=== PATIENT | male | born 1985 | race Hispanic/Latino ===

== ENCOUNTER 2021-09-21 13:46 | Emergency (ER) | payer OTHER ==
[~2021-09-21] VITALS: Ht 177.8 cm; Wt 68.5 kg
[2021-09-21 14:23] LABS: BASOPHILS % (AUTO) 0.5 % (0.0-5.0); HEMATOCRIT 49.7 % (42-54); LYMPHOCYTES % (AUTO) 7.9 % (21.0-51.0); MEAN CORPUSCULAR HEMOGLOBIN 28.7 pg (27.0-33.0); MEAN CORPUSCULAR HGB CONC 33.6 g/dL (32.0-36.0); MEAN CORPUSCULAR VOLUME 85.5 fL (79-99); MONOCYTES % (AUTO) 10.5 % (3.0-13.0); NEUTROPHILS % (AUTO) 74.8 % (40.0-77.0); PLATELET COUNT (AUTO) 231 K/uL (130-400); RED BLOOD CELL COUNT(AUTO) 5.81 MIL/uL (4.50-6.20); RED CELL DISTRIBUTION WIDTH 12.6 % (11.0-15.5); WHITE BLOOD COUNT (AUTO) 9.2 K/uL (4.8-10.8)
[2021-09-21 14:42] LABS: APPEARANCE,URINE Clear (CLEAR); BILIRUBIN,URINE Negative (NEGATIVE); COLOR,URINE Yellow (YELLOW); GLUCOSE, URINE (UA) Negative (NEGATIVE); KETONES,URINE Negative (NEGATIVE); LEUKOCYTE ESTERASE ,URINE Negative (NEGATIVE); NITRATE,URINE Negative (NEGATIVE); OCCULT BLOOD,URINE Large (NEGATIVE); PROTEIN,URINE >=1000 mg/dL (NEGATIVE)
[2021-09-21 14:43] LABS: CREATININE 0.7 mg/dL (0.5-1.5); POTASSIUM 3.6 mmol/L (3.5-5.1)
[2021-09-21 14:47] LABS: ALBUMIN 1.4 g/dL (3.5-5.0); BILIRUBIN,TOTAL 0.2 mg/dL (0.2-1.0); CRP QUANTITATIVE 26.8 mg/L (0.00-9.0); TOTAL PROTEIN, SERUM 5.1 g/dL (6.0-8.3)
[2021-09-21] MEDS ORDERED: ACETAMINOPHEN 500 MG TABLET PO ONE (15:00)
[2021-09-21 15:08] LABS: BACTERIA,URINE Rare /HPF (None Seen); HYALINE CASTS, URINE 0-1 /LPF (0-1 /LPF); MUCUS,URINE Rare LPF (None Seen); RBC,URINE 0-1 /HPF (0-1); SQUAMOUS EPITHELIAL CELL,UR Rare /HPF (0-2)
[2021-09-21] MEDS ORDERED: 0.9%NACL 1000ML 1,000 ML IV ONE (16:30)
[2021-09-21] MEDS ORDERED: IOHEXOL-350 75 ML VIAL IV ONE (18:02)
[2021-09-21 18:23] VITALS: BP 103/64
== END 2021-09-21 19:27 | disposition home or self-care (01) ==
LOC: EDH 13:46
DX: R53.1 Weakness (principal); R05.9 Cough, unspecified; R06.02 Shortness of breath; Z20.822 Contact with and (suspected) exposure to COVID-19
CPT/HCPCS: 36415; 71046; 71270; 80053; 81001; 82550; 83605; 84145; 85025; 85378; 86140; 87040 ×2; 87635; 87804 ×2; 87880; 96360; 99285; C9803; J7030; Q9967

== ENCOUNTER 2021-12-01 15:21 | Inpatient (IN) | payer OTHER ==
[~2021-12-01] VITALS: Ht 177.8 cm; Wt 57.5 kg
[2021-12-01] MEDS ORDERED: ACETAMINOPHEN 325 MG TAB PO PRN ×2 (17:30)
[2021-12-01] MEDS: 0.9%NACL 1000ML 1,000 ML IV SCH (17:47)
[2021-12-01 20:10] VITALS: BP 105/60
[2021-12-01] MEDS ORDERED: DABI110C PO (20:21)
[2021-12-01] MEDS ORDERED: PROP10TA72 PO (20:21)
[2021-12-01] MEDS: FAMOTIDINE 20MG VIAL IV SCH (21:18)
[2021-12-02] MEDS: 0.9%NACL 1000ML 1,000 ML IV SCH ×3 (00:08→23:30)
[2021-12-02 00:18] VITALS: BP 100/60
[2021-12-02 00:55] LABS: BASOPHILS % (AUTO) 0.4 % (0.0-5.0); HEMATOCRIT 29.6 % (42-54); LYMPHOCYTES % (AUTO) 12.1 % (21.0-51.0); MEAN CORPUSCULAR HEMOGLOBIN 29.1 pg (27.0-33.0); MEAN CORPUSCULAR HGB CONC 33.8 g/dL (32.0-36.0); MONOCYTES % (AUTO) 16.2 % (3.0-13.0); NEUTROPHILS % (AUTO) 61.6 % (40.0-77.0); PLATELET COUNT (AUTO) 124 K/uL (130-400); RED BLOOD CELL COUNT(AUTO) 3.44 MIL/uL (4.50-6.20); RED CELL DISTRIBUTION WIDTH 16.3 % (11.0-15.5); WHITE BLOOD COUNT (AUTO) 4.5 K/uL (4.8-10.8)
[2021-12-02 01:10] LABS: INR 1.04 (0.85-1.15); PROTHROMBIN TIME 11.3 SEC (9.6-11.6)
[2021-12-02 01:11] LABS: PARTIAL THROMBOPLASTIN TIME 44.1 SEC (26.3-35.5)
[2021-12-02 01:13] LABS: ALBUMIN 1.4 g/dL (3.5-5.0); CREATININE 0.3 mg/dL (0.5-1.5); MAGNESIUM 1.6 mg/dL (1.80-2.40); POTASSIUM 3.4 mmol/L (3.5-5.1); TOTAL PROTEIN, SERUM 4.6 g/dL (6.0-8.3)
[2021-12-02] MEDS ORDERED: MAGNESIUM 2GM PREMIX 50ML 50 ML IV ONE (02:00)
[2021-12-02 05:40] VITALS: BP 94/56
[2021-12-02 07:30] VITALS: BP 103/65
[2021-12-02] MEDS ORDERED: LIDOCAINE HCL-MPF 1% 2ML VIAL IV PRN (08:00)
[2021-12-02] MEDS ORDERED: POTASSIUM CHLORIDE 10MEQ/100ML 100 ML IV PRN (08:00)
[2021-12-02] MEDS ORDERED: KCL 20 MEQ ERTAB PO PRN (08:00)
[2021-12-02] MEDS: FAMOTIDINE 20MG VIAL IV SCH ×2 (08:53→22:52)
[2021-12-02] MEDS: POTASSIUM CHLORIDE 10% ELIXIR 20 MEQ/15 ML UDCUP PO PRN (08:53)
[2021-12-02 09:42] LABS: BASOPHILS % (AUTO) 0.5 % (0.0-5.0); HEMATOCRIT 32.2 % (42-54); LYMPHOCYTES % (AUTO) 10.8 % (21.0-51.0); MEAN CORPUSCULAR HEMOGLOBIN 28.8 pg (27.0-33.0); MEAN CORPUSCULAR HGB CONC 33.5 g/dL (32.0-36.0); MEAN CORPUSCULAR VOLUME 85.9 fL (79-99); MONOCYTES % (AUTO) 11.7 % (3.0-13.0); NEUTROPHILS % (AUTO) 67.7 % (40.0-77.0); PLATELET COUNT (AUTO) 132 K/uL (130-400); RED BLOOD CELL COUNT(AUTO) 3.75 MIL/uL (4.50-6.20); RED CELL DISTRIBUTION WIDTH 16.4 % (11.0-15.5); WHITE BLOOD COUNT (AUTO) 4.4 K/uL (4.8-10.8)
[2021-12-02 09:56] LABS: ALBUMIN 1.5 g/dL (3.5-5.0); CREATININE 0.4 mg/dL (0.5-1.5); POTASSIUM 3.7 mmol/L (3.5-5.1)
[2021-12-02 11:00] VITALS: BP 103/67
[2021-12-02 14:58] LABS: % IRON SATURATION 34.4 % (30-44)
[2021-12-02 16:00] VITALS: BP 102/64
[2021-12-02] MEDS ORDERED: PEG 3350/NA SULF,BICARB,CL/KCL 4000 ML SOLN PO ONE (18:00)
[2021-12-02 19:00] VITALS: BP 99/66
[2021-12-02] MEDS ORDERED: PHARMACY COMMUNICATION MISC SCH (22:30)
[2021-12-02] MEDS ORDERED: NYSTATIN 100000 UNIT/ML 5ML UDCUP PO SCH (22:30)
[2021-12-02] MEDS ORDERED: LIDOCAINE HCL PO PRN ×3 (22:30)
[2021-12-02] MEDS ORDERED: ALUM PO PRN ×3 (22:30)
[2021-12-02] MEDS ORDERED: SIMETH PO PRN ×3 (22:30)
[2021-12-02] MEDS ORDERED: DIPHENHYDRAMINE HCL PO PRN ×3 (22:30)
[2021-12-02] MEDS ORDERED: VISCOUS PO PRN ×3 (22:30)
[2021-12-02] MEDS ORDERED: MAG PO PRN ×3 (22:30)
[2021-12-02] MEDS: ONDANSETRON 4MG INJ IV PRN (22:52)
[2021-12-03] VITALS (20 sets, daily range): BP systolic 94–109; BP diastolic 54–78
[2021-12-03 08:46] LABS: HEMATOCRIT 32.5 % (42-54); MEAN CORPUSCULAR HEMOGLOBIN 29.2 pg (27.0-33.0); MEAN CORPUSCULAR HGB CONC 33.2 g/dL (32.0-36.0); MEAN CORPUSCULAR VOLUME 87.8 fL (79-99); RED BLOOD CELL COUNT(AUTO) 3.7 MIL/uL (4.50-6.20); RED CELL DISTRIBUTION WIDTH 16.5 % (11.0-15.5); WHITE BLOOD COUNT (AUTO) 4.6 K/uL (4.8-10.8)
[2021-12-03] MEDS: FAMOTIDINE 20MG VIAL IV SCH ×2 (08:52→21:42)
[2021-12-03 08:57] LABS: ALBUMIN 1.5 g/dL (3.5-5.0); CREATININE 0.4 mg/dL (0.5-1.5); MAGNESIUM 1.7 mg/dL (1.80-2.40); POTASSIUM 3.4 mmol/L (3.5-5.1); TOTAL PROTEIN, SERUM 4.9 g/dL (6.0-8.3)
[2021-12-03] MEDS: 0.9%NACL 1000ML 1,000 ML IV SCH (09:30)
[2021-12-03 10:30] LABS: HEPATITIS A IGM ANTIBODY Non-Reactive (Nonreactive); HEPATITIS B CORE IGM ANTIBODY Non-Reactive (Negative); HEPATITIS B SURFACE ANTIGEN Non-Reactive (Nonreactive); HEPATITIS C ANTIBODY Non-Reactive (Nonreactive)
[2021-12-03] MEDS: NYSTATIN 100000 UNIT/ML 5ML UDCUP PO SCH ×2 (16:25→21:43)
[2021-12-03] MEDS: MAGNESIUM 2GM PREMIX 50ML 50 ML IV PRN (21:52)
[2021-12-03] MEDS: POTASSIUM CHLORIDE 10% ELIXIR 20 MEQ/15 ML UDCUP PO PRN ×2 (21:53→23:32)
[2021-12-04 04:39] VITALS: BP 98/62
[2021-12-04 05:07] LABS: BASOPHILS % (AUTO) 0.2 % (0.0-5.0); HEMATOCRIT 29.9 % (42-54); LYMPHOCYTES % (AUTO) 11.5 % (21.0-51.0); MEAN CORPUSCULAR HEMOGLOBIN 28.9 pg (27.0-33.0); MEAN CORPUSCULAR HGB CONC 33.1 g/dL (32.0-36.0); MEAN CORPUSCULAR VOLUME 87.4 fL (79-99); MONOCYTES % (AUTO) 15.3 % (3.0-13.0); NEUTROPHILS % (AUTO) 64.4 % (40.0-77.0); PLATELET COUNT (AUTO) 107 K/uL (130-400); RED BLOOD CELL COUNT(AUTO) 3.42 MIL/uL (4.50-6.20); RED CELL DISTRIBUTION WIDTH 16.8 % (11.0-15.5); WHITE BLOOD COUNT (AUTO) 4.2 K/uL (4.8-10.8)
[2021-12-04] MEDS: 0.9%NACL 1000ML 1,000 ML IV SCH ×4 (05:30→21:03)
[2021-12-04 05:38] LABS: ALBUMIN 1.2 g/dL (3.5-5.0); CREATININE 0.3 mg/dL (0.5-1.5); POTASSIUM 3.2 mmol/L (3.5-5.1); TOTAL PROTEIN, SERUM 4.3 g/dL (6.0-8.3)
[2021-12-04] MEDS: NYSTATIN 100000 UNIT/ML 5ML UDCUP PO SCH ×3 (05:44→21:03)
[2021-12-04 07:59] VITALS: BP 111/61
[2021-12-04] MEDS: FAMOTIDINE 20MG VIAL IV SCH ×2 (08:47→21:03)
[2021-12-04] MEDS: POTASSIUM CHLORIDE 10% ELIXIR 20 MEQ/15 ML UDCUP PO PRN ×2 (10:01→16:37)
[2021-12-04 11:43] VITALS: BP 104/61
[2021-12-04 16:00] VITALS: BP 99/59
[2021-12-04] MEDS: DOXYCYCLINE HYCLATE 100 MG TABLET PO SCH (16:36)
[2021-12-04 20:00] VITALS: BP 111/63
[2021-12-05] VITALS: BP 110/65
[2021-12-05] MEDS: DOXYCYCLINE HYCLATE 100 MG TABLET PO SCH ×2 (03:12→14:32)
[2021-12-05 04:00] VITALS: BP 109/61
[2021-12-05 06:10] LABS: HEMATOCRIT 28.3 % (42-54); MEAN CORPUSCULAR HEMOGLOBIN 28.7 pg (27.0-33.0); MEAN CORPUSCULAR HGB CONC 33.2 g/dL (32.0-36.0); MEAN CORPUSCULAR VOLUME 86.5 fL (79-99); RED BLOOD CELL COUNT(AUTO) 3.27 MIL/uL (4.50-6.20); RED CELL DISTRIBUTION WIDTH 16.9 % (11.0-15.5); WHITE BLOOD COUNT (AUTO) 4.8 K/uL (4.8-10.8)
[2021-12-05] MEDS: NYSTATIN 100000 UNIT/ML 5ML UDCUP PO SCH ×3 (06:20→19:40)
[2021-12-05 06:32] LABS: ALBUMIN 1.2 g/dL (3.5-5.0); BILIRUBIN,DIRECT 0.2 mg/dL (0.0-0.3); POTASSIUM 3.3 mmol/L (3.5-5.1); TOTAL PROTEIN, SERUM 4.1 g/dL (6.0-8.3)
[2021-12-05 07:35] VITALS: BP 99/66
[2021-12-05 08:24] LABS: CREATININE 0.4 mg/dL (0.5-1.5)
[2021-12-05] MEDS: FAMOTIDINE 20MG VIAL IV SCH ×2 (10:27→19:40)
[2021-12-05 11:30] VITALS: BP 108/68
[2021-12-05] MEDS ORDERED: BENZOCAINE/MENTH/CETYLPYRD CL 1 EACH LOZENGE MM PRN (15:00)
[2021-12-05 15:35] VITALS: BP 109/71
[2021-12-05 18:54] LABS: APPEARANCE,URINE CLEAR (CLEAR); BILIRUBIN,URINE NEGATIVE (NEGATIVE); COLOR,URINE YELLOW (YELLOW); GLUCOSE, URINE (UA) NEGATIVE (NEGATIVE); KETONES,URINE NEGATIVE (NEGATIVE); LEUKOCYTE ESTERASE ,URINE NEGATIVE (NEGATIVE); NITRATE,URINE NEGATIVE (NEGATIVE); OCCULT BLOOD,URINE TRACE-INTACT (NEGATIVE); PROTEIN,URINE 30 mg/dL (NEGATIVE)
[2021-12-05 19:27] LABS: AMPHET/METH SCREEN,URINE NEGATIVE (NEGATIVE); BARBITURATE SCREEN, URINE NEGATIVE (NEGATIVE); BENZODIAZEPINES SCREEN,URINE NEGATIVE (NEGATIVE); CANNABINOID SCREEN,URINE NEGATIVE (NEGATIVE); COCAINE SCREEN,URINE NEGATIVE (NEGATIVE); PHENCYCLIDINE SCREEN,URINE NEGATIVE (NEGATIVE)
[2021-12-05] MEDS: POTASSIUM CHLORIDE 10% ELIXIR 20 MEQ/15 ML UDCUP PO PRN ×2 (19:40→21:32)
[2021-12-05 19:49] LABS: BACTERIA,URINE Few /HPF (None Seen); MUCUS,URINE Few LPF (None Seen); RBC,URINE 0-1 /HPF (0-1); SQUAMOUS EPITHELIAL CELL,UR Rare /HPF (0-2)
[2021-12-05 20:00] VITALS: BP 124/71
[2021-12-06] VITALS: BP 109/67
[2021-12-06] MEDS: ONDANSETRON 4MG INJ IV PRN (01:54)
[2021-12-06] MEDS: DOXYCYCLINE HYCLATE 100 MG TABLET PO SCH ×2 (01:54→13:44)
[2021-12-06] MEDS: NYSTATIN 100000 UNIT/ML 5ML UDCUP PO SCH ×3 (03:53→19:58)
[2021-12-06 04:00] VITALS: BP 107/65
[2021-12-06 04:12] LABS: BASOPHILS % (AUTO) 0.4 % (0.0-5.0); HEMATOCRIT 30.7 % (42-54); LYMPHOCYTES % (AUTO) 9.8 % (21.0-51.0); MEAN CORPUSCULAR HEMOGLOBIN 28.7 pg (27.0-33.0); MEAN CORPUSCULAR HGB CONC 32.6 g/dL (32.0-36.0); MEAN CORPUSCULAR VOLUME 88.2 fL (79-99); MONOCYTES % (AUTO) 18.1 % (3.0-13.0); NEUTROPHILS % (AUTO) 63.5 % (40.0-77.0); PLATELET COUNT (AUTO) 109 K/uL (130-400); RED BLOOD CELL COUNT(AUTO) 3.48 MIL/uL (4.50-6.20); RED CELL DISTRIBUTION WIDTH 17.1 % (11.0-15.5); WHITE BLOOD COUNT (AUTO) 5.6 K/uL (4.8-10.8)
[2021-12-06 04:23] LABS: ALBUMIN 1.3 g/dL (3.5-5.0); CREATININE 0.4 mg/dL (0.5-1.5); MAGNESIUM 1.6 mg/dL (1.80-2.40); POTASSIUM 3.8 mmol/L (3.5-5.1); TOTAL PROTEIN, SERUM 4.4 g/dL (6.0-8.3)
[2021-12-06] MEDS: MAGNESIUM 2GM PREMIX 50ML 50 ML IV PRN (05:32)
[2021-12-06] MEDS: POTASSIUM CHLORIDE 10% ELIXIR 20 MEQ/15 ML UDCUP PO PRN ×2 (05:32→09:07)
[2021-12-06 08:00] VITALS: BP 104/70
[2021-12-06] MEDS ORDERED: METOPROLOL SUCCINATE 25 MG TAB.SR.24H PO SCH (09:00)
[2021-12-06] MEDS: FAMOTIDINE 20MG VIAL IV SCH ×2 (09:06→19:59)
[2021-12-06] MEDS: LISINOPRIL 5 MG TABLET PO SCH (09:07)
[2021-12-06] MEDS ORDERED: DEXAMETHASONE SOD PHOSPHATE 4 MG/ML 1ML VIAL IV SCH (11:30)
[2021-12-06 12:00] VITALS: BP 96/64
[2021-12-06] MEDS ORDERED: DEXAMETHASONE 10MG/ML 1ML VIAL 20 MG in 0.9%NACL 50ML 50 ML IV SCH (12:00)
[2021-12-06] MEDS ORDERED: PHARMACY COMMUNICATION MISC SCH (13:00)
[2021-12-06] MEDS: [UNRECOGNIZED DRUG - OTHER] IV SCH (13:53)
[2021-12-06] MEDS: DEXAMETHASONE IV SCH (13:53)
[2021-12-06 16:00] VITALS: BP 94/59
[2021-12-06 20:38] VITALS: BP 101/70
[2021-12-07 00:24] VITALS: BP 98/64
[2021-12-07] MEDS: DOXYCYCLINE HYCLATE 100 MG TABLET PO SCH ×2 (02:39→15:00)
[2021-12-07] MEDS: ONDANSETRON 4MG INJ IV PRN ×2 (02:44→15:00)
[2021-12-07 04:28] LABS: BASOPHILS % (AUTO) 0.3 % (0.0-5.0); HEMATOCRIT 30.8 % (42-54); MEAN CORPUSCULAR HEMOGLOBIN 29.1 pg (27.0-33.0); MEAN CORPUSCULAR HGB CONC 32.8 g/dL (32.0-36.0); MEAN CORPUSCULAR VOLUME 88.8 fL (79-99); MONOCYTES % (AUTO) 18.2 % (3.0-13.0); NEUTROPHILS % (AUTO) 62.3 % (40.0-77.0); PLATELET COUNT (AUTO) 114 K/uL (130-400); RED BLOOD CELL COUNT(AUTO) 3.47 MIL/uL (4.50-6.20); RED CELL DISTRIBUTION WIDTH 17.1 % (11.0-15.5); WHITE BLOOD COUNT (AUTO) 6.7 K/uL (4.8-10.8)
[2021-12-07 04:35] LABS: ALBUMIN 1.3 g/dL (3.5-5.0); CREATININE 0.4 mg/dL (0.5-1.5); MAGNESIUM 1.7 mg/dL (1.80-2.40); POTASSIUM 4.1 mmol/L (3.5-5.1); TOTAL PROTEIN, SERUM 4.5 g/dL (6.0-8.3)
[2021-12-07 05:23] VITALS: BP 105/63
[2021-12-07] MEDS: NYSTATIN 100000 UNIT/ML 5ML UDCUP PO SCH ×3 (05:41→20:15)
[2021-12-07] MEDS: MAGNESIUM 2GM PREMIX 50ML 50 ML IV PRN (05:42)
[2021-12-07 08:13] VITALS: BP 100/67
[2021-12-07] MEDS: LISINOPRIL 5 MG TABLET PO SCH (08:59)
[2021-12-07] MEDS ORDERED: METOPROLOL SUCCINATE 25 MG TAB.SR.24H PO SCH (09:00)
[2021-12-07] MEDS: METOPROLOL SUCCINATE 25 MG TAB.SR.24H PO SCH (09:00)
[2021-12-07] MEDS: FAMOTIDINE 20MG VIAL IV SCH ×2 (09:00→20:15)
[2021-12-07 11:36] VITALS: BP 100/62
[2021-12-07] MEDS: [UNRECOGNIZED DRUG - OTHER] IV SCH (12:56)
[2021-12-07] MEDS: DEXAMETHASONE IV SCH (12:56)
[2021-12-07 15:39] VITALS: BP 110/58
[2021-12-07 16:10] LABS: TYPHUS FEVER IGG <1:64 (Neg:<1:64); TYPHUS FEVER IGM <1:64 (Neg:<1:64)
[2021-12-07 21:10] VITALS: BP 96/56
[2021-12-08 01:16] VITALS: BP 98/66
[2021-12-08 04:26] VITALS: BP 99/66
[2021-12-08] MEDS: DOXYCYCLINE HYCLATE 100 MG TABLET PO SCH ×2 (05:13→15:31)
[2021-12-08] MEDS: NYSTATIN 100000 UNIT/ML 5ML UDCUP PO SCH ×3 (05:13→19:43)
[2021-12-08] MEDS: ONDANSETRON 4MG INJ IV PRN ×2 (05:13→15:31)
[2021-12-08 05:48] LABS: BASOPHILS % (AUTO) 0.3 % (0.0-5.0); HEMATOCRIT 32.7 % (42-54); LYMPHOCYTES % (AUTO) 12.6 % (21.0-51.0); MEAN CORPUSCULAR HEMOGLOBIN 28.6 pg (27.0-33.0); MEAN CORPUSCULAR HGB CONC 32.4 g/dL (32.0-36.0); MEAN CORPUSCULAR VOLUME 88.1 fL (79-99); PLATELET COUNT (AUTO) 140 K/uL (130-400); RED BLOOD CELL COUNT(AUTO) 3.71 MIL/uL (4.50-6.20); WHITE BLOOD COUNT (AUTO) 7.6 K/uL (4.8-10.8)
[2021-12-08 06:32] LABS: ALBUMIN 1.4 g/dL (3.5-5.0); CREATININE 0.4 mg/dL (0.5-1.5); MAGNESIUM 1.8 mg/dL (1.80-2.40); POTASSIUM 4.1 mmol/L (3.5-5.1); TOTAL PROTEIN, SERUM 4.8 g/dL (6.0-8.3)
[2021-12-08 08:25] VITALS: BP 98/68
[2021-12-08] MEDS: ASCORBIC ACID 500 MG TAB PO SCH (10:25)
[2021-12-08] MEDS: LISINOPRIL 5 MG TABLET PO SCH (10:25)
[2021-12-08] MEDS: NIACIN 500 MG SRTAB PO SCH (10:25)
[2021-12-08] MEDS: VITAMIN B COMPLEX 1 CAPSULE PO SCH (10:25)
[2021-12-08] MEDS: ZINC SULFATE 220 CAPSULE PO SCH (10:25)
[2021-12-08] MEDS: FOLIC ACID 1 MG TABLET PO SCH (10:26)
[2021-12-08] MEDS: FAMOTIDINE 20MG VIAL IV SCH ×2 (10:26→19:43)
[2021-12-08] MEDS: MULTIVITAMIN TABLET PO SCH (10:26)
[2021-12-08] MEDS: METOPROLOL SUCCINATE 25 MG TAB.SR.24H PO SCH (10:26)
[2021-12-08] MEDS: THIAMINE HCL 100 MG TABLET PO SCH (10:26)
[2021-12-08 11:06] VITALS: BP 102/71
[2021-12-08] MEDS: DEXAMETHASONE IV SCH (13:02)
[2021-12-08] MEDS: [UNRECOGNIZED DRUG - OTHER] IV SCH (13:02)
[2021-12-08 15:57] VITALS: BP 92/58
[2021-12-08] MEDS: TRIAMCINOLONE ACETONIDE 0.1% CREAM 15GM TP SCH (19:44)
[2021-12-08 20:57] VITALS: BP 96/61
[2021-12-09 00:22] VITALS: BP 99/61
[2021-12-09] MEDS: DOXYCYCLINE HYCLATE 100 MG TABLET PO SCH (02:52)
[2021-12-09 04:30] VITALS: BP 101/65
[2021-12-09 05:07] LABS: BASOPHILS % (AUTO) 0.3 % (0.0-5.0); HEMATOCRIT 32.7 % (42-54); MEAN CORPUSCULAR HEMOGLOBIN 29.3 pg (27.0-33.0); MEAN CORPUSCULAR HGB CONC 33.3 g/dL (32.0-36.0); MEAN CORPUSCULAR VOLUME 87.9 fL (79-99); MONOCYTES % (AUTO) 21.9 % (3.0-13.0); NEUTROPHILS % (AUTO) 58.8 % (40.0-77.0); PLATELET COUNT (AUTO) 155 K/uL (130-400); RED BLOOD CELL COUNT(AUTO) 3.72 MIL/uL (4.50-6.20); WHITE BLOOD COUNT (AUTO) 7.4 K/uL (4.8-10.8)
[2021-12-09 05:17] LABS: INR 1.07 (0.85-1.15); PROTHROMBIN TIME 11.6 SEC (9.6-11.6)
[2021-12-09] MEDS: NYSTATIN 100000 UNIT/ML 5ML UDCUP PO SCH ×3 (05:42→19:32)
[2021-12-09 05:45] LABS: ALBUMIN 1.6 g/dL (3.5-5.0); CREATININE 0.5 mg/dL (0.5-1.5); POTASSIUM 4.1 mmol/L (3.5-5.1); THYROID STIMULATING HORMONE 4.76 uIU/mL (0.36-3.74); TOTAL PROTEIN, SERUM 5.1 g/dL (6.0-8.3)
[2021-12-09 08:00] VITALS: BP 100/63
[2021-12-09] MEDS: FOLIC ACID 1 MG TABLET PO SCH (08:40)
[2021-12-09] MEDS: ZINC SULFATE 220 CAPSULE PO SCH (08:40)
[2021-12-09] MEDS: NIACIN 500 MG SRTAB PO SCH (08:41)
[2021-12-09] MEDS: LISINOPRIL 5 MG TABLET PO SCH (08:41)
[2021-12-09] MEDS: ASCORBIC ACID 500 MG TAB PO SCH (08:41)
[2021-12-09] MEDS: MULTIVITAMIN TABLET PO SCH (08:41)
[2021-12-09] MEDS: METOPROLOL SUCCINATE 25 MG TAB.SR.24H PO SCH (08:41)
[2021-12-09] MEDS: FAMOTIDINE 20MG VIAL IV SCH ×2 (08:42→19:32)
[2021-12-09] MEDS: THIAMINE HCL 100 MG TABLET PO SCH (08:42)
[2021-12-09] MEDS: VITAMIN B COMPLEX 1 CAPSULE PO SCH (08:42)
[2021-12-09] MEDS: TRIAMCINOLONE ACETONIDE 0.1% CREAM 15GM TP SCH ×2 (08:43→19:32)
[2021-12-09 12:00] VITALS: BP 93/60
[2021-12-09] MEDS: [UNRECOGNIZED DRUG - OTHER] IV SCH (13:31)
[2021-12-09] MEDS: DEXAMETHASONE IV SCH (13:31)
[2021-12-09 16:00] VITALS: BP 100/62
[2021-12-09 20:26] VITALS: BP 107/73
[2021-12-10 00:01] VITALS: BP 99/57
[2021-12-10] MEDS: NYSTATIN 100000 UNIT/ML 5ML UDCUP PO SCH ×3 (05:37→21:14)
[2021-12-10 06:16] VITALS: BP 98/62
[2021-12-10 08:00] VITALS: BP 95/56
[2021-12-10 08:05] LABS: BASOPHILS % (AUTO) 0.3 % (0.0-5.0); HEMATOCRIT 31.7 % (42-54); LYMPHOCYTES % (AUTO) 9.7 % (21.0-51.0); MEAN CORPUSCULAR HEMOGLOBIN 29.2 pg (27.0-33.0); MEAN CORPUSCULAR HGB CONC 32.8 g/dL (32.0-36.0); MONOCYTES % (AUTO) 18.3 % (3.0-13.0); NEUTROPHILS % (AUTO) 64.1 % (40.0-77.0); NUCLEATED RED BLOOD CELLS 0.3 % (0.0-0.19); PLATELET COUNT (AUTO) 142 K/uL (130-400); RED BLOOD CELL COUNT(AUTO) 3.56 MIL/uL (4.50-6.20); WHITE BLOOD COUNT (AUTO) 6.7 K/uL (4.8-10.8)
[2021-12-10 08:25] LABS: ALBUMIN 1.5 g/dL (3.5-5.0); CREATININE 0.5 mg/dL (0.5-1.5); POTASSIUM 4.1 mmol/L (3.5-5.1); TOTAL PROTEIN, SERUM 4.9 g/dL (6.0-8.3)
[2021-12-10] MEDS: FOLIC ACID 1 MG TABLET PO SCH (09:28)
[2021-12-10] MEDS: ASCORBIC ACID 500 MG TAB PO SCH (09:28)
[2021-12-10] MEDS: THIAMINE HCL 100 MG TABLET PO SCH (09:28)
[2021-12-10] MEDS: MULTIVITAMIN TABLET PO SCH (09:28)
[2021-12-10] MEDS: ZINC SULFATE 220 CAPSULE PO SCH (09:29)
[2021-12-10] MEDS: VITAMIN B COMPLEX 1 CAPSULE PO SCH (09:29)
[2021-12-10] MEDS: FAMOTIDINE 20MG VIAL IV SCH ×2 (09:29→21:30)
[2021-12-10] MEDS: TRIAMCINOLONE ACETONIDE 0.1% CREAM 15GM TP SCH ×2 (09:32→21:00)
[2021-12-10 12:00] VITALS: BP 94/59
[2021-12-10] MEDS ORDERED: COMPOUND IV MISC 1 EACH IVSOLN MISC PRN (12:00)
[2021-12-10] MEDS: DEXAMETHASONE IV SCH (13:33)
[2021-12-10] MEDS: [UNRECOGNIZED DRUG - OTHER] IV SCH (13:33)
[2021-12-10] MEDS: NIACIN 500 MG SRTAB PO SCH (13:33)
[2021-12-10 16:00] VITALS: BP 99/60
[2021-12-10] MEDS: METOPROLOL SUCCINATE 25 MG TAB.SR.24H PO SCH (16:49)
[2021-12-10] MEDS: LISINOPRIL 5 MG TABLET PO SCH (16:50)
[2021-12-10] MEDS: CLOTRIMAZOLE 10 MG TROCHE MM SCH ×2 (17:43→23:50)
[2021-12-11] VITALS: BP 108/58
[2021-12-11 04:06] VITALS: BP 93/62
[2021-12-11] MEDS: NYSTATIN 100000 UNIT/ML 5ML UDCUP PO SCH (05:49)
[2021-12-11] MEDS: CLOTRIMAZOLE 10 MG TROCHE MM SCH ×2 (05:50→12:45)
[2021-12-11 07:50] VITALS: BP 99/66
[2021-12-11 08:41] LABS: ALBUMIN 1.5 g/dL (3.5-5.0); CREATININE 0.4 mg/dL (0.5-1.5); POTASSIUM 3.7 mmol/L (3.5-5.1)
[2021-12-11] MEDS: ZINC SULFATE 220 CAPSULE PO SCH (08:47)
[2021-12-11] MEDS: METOPROLOL SUCCINATE 25 MG TAB.SR.24H PO SCH (08:47)
[2021-12-11] MEDS: FAMOTIDINE 20MG VIAL IV SCH (08:47)
[2021-12-11] MEDS: FOLIC ACID 1 MG TABLET PO SCH (08:47)
[2021-12-11] MEDS: MULTIVITAMIN TABLET PO SCH (08:47)
[2021-12-11] MEDS: VITAMIN B COMPLEX 1 CAPSULE PO SCH (08:47)
[2021-12-11] MEDS: THIAMINE HCL 100 MG TABLET PO SCH (08:47)
[2021-12-11] MEDS: ASCORBIC ACID 500 MG TAB PO SCH (08:48)
[2021-12-11] MEDS: LISINOPRIL 5 MG TABLET PO SCH (08:48)
[2021-12-11] MEDS: NIACIN 500 MG SRTAB PO SCH (08:50)
[2021-12-11] MEDS: TRIAMCINOLONE ACETONIDE 0.1% CREAM 15GM TP SCH (08:59)
[2021-12-11] MEDS ORDERED: CEFUROXIME AXETIL 250 MG TABLET PO SCH (09:30)
[2021-12-11 11:45] VITALS: BP 96/61
[2021-12-11] MEDS ORDERED: VITA1CAP PO (12:02)
[2021-12-11] MEDS ORDERED: NIAC500SR PO (12:02)
[2021-12-11] MEDS ORDERED: METO25TA3 PO (12:02)
[2021-12-11] MEDS ORDERED: ZINC220C6 PO (12:02)
[2021-12-11] MEDS ORDERED: THIA100T91 PO (12:02)
[2021-12-11] MEDS ORDERED: LISI5TAB21 PO (12:02)
[2021-12-11] MEDS ORDERED: MVIT PO (12:02)
[2021-12-11] MEDS ORDERED: ASCO500T20 PO (12:02)
[2021-12-11] MEDS ORDERED: FOLI1 PO (12:02)
[2021-12-11] MEDS: [UNRECOGNIZED DRUG - OTHER] IV SCH (12:46)
[2021-12-11] MEDS: DEXAMETHASONE IV SCH (12:46)
== END 2021-12-11 14:55 | disposition home or self-care (01) | DRG 545 ==
LOC: EDH 15:21 → EDHIP 15:22 → UNDOADMIN 17:16 → 4BH 20:10
PROVIDERS: ADMIT Hospitalist; ATTEND Hospitalist
PROC: 0DJ08ZZ Inspection of Upper Intestinal Tract, Via Natural or Artificial Opening Endoscopic (ICD-10-PCS; principal; 2021-12-03)
PROC: 0DJD8ZZ Inspection of Lower Intestinal Tract, Via Natural or Artificial Opening Endoscopic (ICD-10-PCS; 2021-12-03)
DX: M33.13 Other dermatomyositis without myopathy (principal); E43 Unspecified severe protein-calorie malnutrition; I42.0 Dilated cardiomyopathy; R64 Cachexia; B37.0 Candidal stomatitis; I31.3 Pericardial effusion (noninflammatory); Z68.1 Body mass index [BMI] 19.9 or less, adult; D64.9 Anemia, unspecified; D69.6 Thrombocytopenia, unspecified; E83.42 Hypomagnesemia; I11.0 Hypertensive heart disease with heart failure; I50.9 Heart failure, unspecified; Z87.01 Personal history of pneumonia (recurrent); Z79.899 Other long term (current) drug therapy; Z86.16 Personal history of COVID-19; Z79.01 Long term (current) use of anticoagulants
CPT/HCPCS: 36415; 43235; 45380; 71045; 71250; 74176; 76700; 80048; 80053; 80074; 80076; 80305; 81001; 82140; 82180; 82306; 82390; 82550; 82595; 82607; 82728; 82746; 83516; 83540; 83550; 83735; 83880; 84100; 84207; 84425; 84439; 84443; 84481; 84484; 84630; 85025; 85027; 85610; 85651; 85730; 86038; 86140; 86160; 86200; 86215; 86235; 86255; 86376; 86431; 86592; 86701; 86720; 86757; 87070; 87077; 87186; 87390; 87536; 87635; 93005; 93306; 97039; G0378; J1100; J2405; J3475; J3490; J7030